=== PATIENT | male | born 1995 | race Hispanic/Latino ===

== ENCOUNTER 2018-02-13 17:04 | Emergency (ER) | payer OTHER ==
[2018-02-13] MEDS: LIDOCAINE 1% MDV 20ML VIAL SC (17:33)
== END 2018-02-13 18:27 | disposition home or self-care (01) ==
LOC: M ED 17:04
DX: S01.81XA Laceration without foreign body of other part of head, initial encounter (principal); S03.40XA Sprain of jaw, unspecified side, initial encounter; W19.XXXA Unspecified fall, initial encounter; Y92.89 Other specified places as the place of occurrence of the external cause; F17.200 Nicotine dependence, unspecified, uncomplicated
CPT/HCPCS: 70110

== ENCOUNTER → 2018-11-03 | Outpatient (CLI) | payer OTHER ==
[~2018-11-03] MED LIST: NAPR-837 PO
--- NOTE | 2018-11-03 11:12 | REP ---
CT of the pelvis without IV or bowel contrast for testicular pain: The abdomen is not included. There are no comparisons. There is no inguinal hernia on the right or the left. The bladder is unremarkable. There is no pelvic adenopathy or ascites. No calcifications are identified in the bladder or in the distal ureters. There are phleboliths in the pelvis on the left. The pelvic bowel loops are unremarkable. Skeletal structures are unremarkable. Impression: No inguinal hernia. No calculi are identified in the distal ureters or bladder. There are phleboliths on the left. Otherwise, negative CT of the pelvis. Electronically Signed by Poncho Castellano MD 11/03/2018 11:04 A
== END ==
LOC: M RAD 09:00
PROVIDERS: ATTEND Physician Assistant
DX: N50.812 Left testicular pain (principal)

== ENCOUNTER 2019-02-04 11:03 | Emergency (ER) | payer OTHER ==
[~2019-02-04] VITALS: Ht 167.6 cm; Wt 71.5 kg
[2019-02-04 12:25] VITALS: BP 124/62
--- NOTE | 2019-02-04 13:43 | REP ---
RIGHT ANKLE COMPLETE: 02/04/2019. Clinical history: Trauma. Findings: Four views show soft tissue swelling anterolateral aspect of the ankle. The mortise joint is symmetric and preserved and there is no talar dome osteochondral defect. No fracture, distal tibia or fibula. Subtalar joints intact. No heel spurs. Talonavicular and calcaneocuboid joints are normal and the tarsal bones and visualized metatarsals intact. Impression: 1. Soft tissue swelling about the anterolateral aspect of the ankle without visible fracture, disruption of the mortise joint or subtalar joint abnormality. No acute bony finding. Electronically Signed by Lokesh Coffman MD 02/04/2019 07:39 P
--- NOTE | 2019-02-04 13:44 | REP ---
RIGHT FOOT COMPLETE: 02/04/2019. Comparison: Right ankle series this date. Clinical history: Trauma. Findings: Four view show the calcaneus and talus without fracture or focal lesion. Subtalar joints intact. Distal tibia and fibula is seen were unremarkable. Tarsal bones, metatarsals and phalanges are without fracture or focal lesion. No avulsion. Impression: 1. Negative right foot series. Electronically Signed by Lokesh Coffman MD 02/04/2019 07:40 P
== END 2019-02-04 12:20 | disposition home or self-care (01) ==
LOC: M ED 11:03
DX: S93.401A Sprain of unspecified ligament of right ankle, initial encounter (principal); X50.1XXA Overexertion from prolonged static or awkward postures, initial encounter; Y92.9 Unspecified place or not applicable; F17.220 Nicotine dependence, chewing tobacco, uncomplicated; F17.290 Nicotine dependence, other tobacco product, uncomplicated